=== PATIENT | female | born 1995 | race Two or more races ===

== ENCOUNTER 2022-10-15 18:46 | Emergency (ER) | payer OTHER ==
[2022-10-15 19:04] VITALS: BP 124/78; PULSE 87; RESP 16; TEMP 98.5; BMI 29.0
[2022-10-15 20:38] LABS: BASO % 0.8 % (0-2.0); HEMATOCRIT 37.3 % (32.4-45.2); HEMOGLOBIN 12.2 GM/dL (10.7-15.3); LYMPH % 14.1 % (8-40); MCH 25.7 pg (25.7-33.7); MCHC 32.8 g/dl (32.0-36.0); MEAN CELL VOLUME 78.6 fl (80-96); MEAN PLT VOLUME 7.9 fl (7.5-11.1); MONO % 6.7 % (3.8-10.2); NEUT % 77.4 % (42.8-82.8); PLATELET COUNT 323 10^3/uL (134-434); RBC 4.74 M/mm3 (3.60-5.2); RDW 16.2 % (11.6-15.6); WHITE BLOOD COUNT 9.9 K/mm3 (4.0-10.0)
[2022-10-15 20:40] LABS: HCG,QUALITATIVE URINE Positive
[2022-10-15 20:43] LABS: EPI CELLS >36 /uL (0-25.1); HYALINE CASTS 1 /uL (0-3.1); URINE APPEARANCE CLEAR; URINE BACTERIA 277 /uL (0-1359); URINE BILIRUBIN NEGATIVE (NEGATIVE); URINE COLOR YELLOW; URINE GLUCOSE (UA) NEGATIVE (NEGATIVE); URINE KETONE NEGATIVE (NEGATIVE); URINE LEUK ESTERASE TRACE (NEGATIVE); URINE NITRITE NEGATIVE (NEGATIVE); URINE PROTEIN NEGATIVE (NEGATIVE); URINE RBC 19 /uL (0-23.9); URINE UROBILINOGEN 0.2 mg/dL (0.2-1.0); URINE WBC 31 /uL (0-25.8)
[2022-10-15 20:57] LABS: BLOOD UREA NITROGEN 10.3 mg/dL (7-18)
[2022-10-15 21:00] LABS: CREATININE 0.6 mg/dL (0.55-1.3)
== END 2022-10-16 00:20 | disposition home or self-care (01) ==
LOC: JER 18:46
DX: O26.851 Spotting complicating pregnancy, first trimester (principal); O23.41 Unspecified infection of urinary tract in pregnancy, first trimester; Z3A.10 10 weeks gestation of pregnancy
CPT/HCPCS: 36415; 76801-TC; 80048; 81003; 84703; 85025; 86850; 86900; 86901; 87077; 87086; 99284-25